=== PATIENT | male | born 1995 ===

== ENCOUNTER 2017-04-20 01:22 | Emergency (ER) | payer SELFPAY ==
[2017-04-20 01:51] VITALS: BP 120/63; PULSE 75; RESP 16; TEMP 98.9; O2SAT 100
--- NOTE | 2017-04-20 02:59 | ED PDOC ---
Syncope/Near Syncope/Dizziness Time Seen by Provider: 04/20/17 01:30 Chief Complaint (Nursing): Dizziness/Lightheaded Chief Complaint (Provider): Arm numbness History Per: Patient Additional Complaint(s): Pt is a 21 yo male, no PMH, presents to ED for eval of palpitations, headache and dizziness, vomiting x 1 episode, numbness to right arm. Pt admits he was sleeping when he woke up with the symptoms. Pt admits to being under alot of stress lately, [place]. Past Medical History Reviewed: Nursing Documentation, Vital Signs Vital Signs: Last Vital Signs Temp 98.9 F 04/20/17 01:48 Pulse 75 04/20/17 01:48 Resp 16 04/20/17 01:48 BP 120/63 04/20/17 01:48 Pulse Ox 100 04/20/17 01:48 - Medical History PMH: Asthma - Surgical History Surgical History: No Surg Hx - Family History Family History: States: No Known Family Hx - Living Arrangements Living Arrangements: With Family - Social History Current smoker - smoking cessation education provided: No Alcohol: None Drugs: Denies - Allergies Allergies/Adverse Reactions: Allergies Allergy/AdvReac Type Severity Reaction Status Date / Time shellfish derived Allergy ANAPHYLAXIS Verified 04/20/17 01:52 Review of Systems ROS Statement: Except As Marked, All Systems Reviewed And Found Negative Cardiovascular: Positive for: Chest Pain, Palpitations Physical Exam - Reviewed Nursing Documentation Reviewed: Yes Vital Signs Reviewed: Yes - Physical Exam Appears: Positive for: Well, Non-toxic, No Acute Distress Head Exam: Positive for: ATRAUMATIC, NORMAL INSPECTION, NORMOCEPHALIC Skin: Positive for: Normal Color, Warm, DRY Eye Exam: Positive for: EOMI, Normal appearance, PERRL ENT: Positive for: Normal ENT Inspection Neck: Positive for: Normal, Painless ROM Cardiovascular/Chest: Positive for: Regular Rate, Rhythm Respiratory: Positive for: CNT, Normal Breath Sounds Gastrointestinal/Abdominal: Positive for: Normal Exam, Bowel Sounds, Soft Back: Positive for: Normal Inspection Extremity: Positive for: Normal ROM Neurologic/Psych: Positive for: Alert, Oriented - Laboratory Results Result Diagrams: 04/20/17 03:20 04/20/17 03:05 - ECG O2 Sat by Pulse Oximetry: 100 Medical Decision Making Medical Decision Making: Iv access established and Pt declined any mediations at this time, reports feeling greatly improved. UDS resulted (-) CBC WNL COMP with K 3.3. K.dur administered PO EKG: SB at 58 bpm, no axis devation or acute ST changes, as read by YRN CXR: NAD, as read by PA-Fritz Pt and family counseled on all results and demonstrated full understanding. Pt doing well on re-eval, no physical complaints. Stable for discharge at this time Disposition - Clinical Impression Clinical Impression: Hypokalemia, Panic attack - Disposition Disposition: Routine/Home Disposition Time: 04:22 Condition: STABLE Instructions: Hypokalemia (ED), Panic Attack (ED) Print Language: [email or web address]
[2017-04-20 03:21] LABS: ALB/GLOB RATIO 1.2 (1.0-2.1); ALKALINE PHOSPHATASE 163 U/L (38-126); ALT/SGPT 41 U/L (21-72); AST/SGOT 23 U/L (17-59); BILIRUBIN,TOTAL 0.3 mg/dl (0.2-1.3); BLOOD UREA NITROGEN 12 mg/dl (9-20); CALCIUM 9.2 mg/dL (8.4-10.2); CARBON DIOXIDE 26 mmol/L (22-30); CHLORIDE 104 mmol/L (98-107); GFR AFRICAN-AMERICAN > 60; GLUCOSE,RANDOM 80 mg/dL (75-110); POTASSIUM 3.3 MMOL/L (3.6-5.0); SODIUM 141 mmol/l (132-148); TOTAL PROTEIN 8.2 G/DL (6.3-8.2)
[2017-04-20 03:24] LABS: BASO % 0.7 % (0.0-2.0); EOS # 0.2 K/uL (0.0-0.7); EOS % 3.2 % (0.0-4.0); HEMATOCRIT 42.3 % (35.0-51.0); LYMPH # 1.6 K/uL (1.0-4.3); LYMPH % 25.6 % (20.0-40.0); MEAN CELL VOLUME 85.6 fl (80.0-94.0); MEAN CORPUSCULAR HEMOGLOBIN 28.7 pg (27.0-31.0); MEAN CORPUSCULAR HGB CONC 33.5 g/dL (33.0-37.0); MEAN PLATELET VOLUME 9.9 fl (7.2-11.7); MONO # 1.1 K/uL (0.0-0.8); MONO % 16.8 % (0.0-10.0); NEUT # 3.4 K/uL (1.8-7.0); NEUT % 53.7 % (50.0-75.0); NRBC % 0.1 % (0.0-0.0); RED CELL DISTRIBUTION WIDTH 14.7 % (11.5-14.5); WHITE BLOOD COUNT 6.3 K/uL (4.8-10.8)
[2017-04-20] MEDS ORDERED: Potassium Chloride 20 mEq ER Tab PO ONE (03:49)
[2017-04-20 03:51] LABS: THYROID STIMULATING HORMONE 2.05 mIU/ML (0.46-4.68)
--- NOTE | 2017-04-20 10:45 | RAD ---
HISTORY: med screening COMPARISON: None available TECHNIQUE: Chest, one view. FINDINGS: LUNGS: No focal consolidation. Please note that chest x-ray has limited sensitivity for the detection of pulmonary masses. PLEURA: No significant pleural effusion identified. No definite pneumothorax . CARDIOVASCULAR: The cardiomediastinal silhouette appears within normal limits of size. OSSEOUS STRUCTURES: No acute osseous abnormality identified. VISUALIZED UPPER ABDOMEN: Mild elevation of the right hemidiaphragm. OTHER FINDINGS: None. IMPRESSION: No focal consolidation, significant pleural effusion, or definite pneumothorax identified.
--- NOTE | 2017-04-22 06:55 | CARD ---
APPROVED REPORT EKG Measurement Heart [id number] ND [id number] [id number] <Conclusion> Sinus bradycardia Otherwise normal ECG
== END 2017-04-20 04:20 | disposition home or self-care (01) ==
LOC: H.ER 01:22
DX: E87.6 Hypokalemia (principal); F41.0 Panic disorder [episodic paroxysmal anxiety]; J45.909 Unspecified asthma, uncomplicated
CPT/HCPCS: 71010; 80053; 84443; 84484; 85025; 93005; 99284; G0480